=== PATIENT | female | born 1955 | race Two or more races ===

== ENCOUNTER 2020-05-12 03:57 | Inpatient (IN) | payer MEDICAID ==
[~2020-05-12] VITALS: Ht 152.4 cm; Wt 45.8 kg
[2020-05-12] MEDS ORDERED: SODIUM CHLORIDE 0.9% 1,000 ML IV ONE ×2 (04:30→05:15)
[2020-05-12 04:39] LABS: HEMATOCRIT. 32.9 % (36.0-48.0); HEMOGLOBIN. 10.4 g/dL (12.0-16.0); MEAN CORPUSCULAR HEMOGLOBIN 31.3 pg (28.0-32.0); MEAN CORPUSCULAR VOLUME 99.1 fL (81.0-99.0); MEAN PLATELET VOLUME 7.6 fl (7.4-10.4); PLATELET 402 x1000/uL (130-400); RED BLOOD CELL COUNT 3.32 mill/uL (4.2-5.4); RED CELL DISTRIBUTION WIDTH 15.9 % (11.6-14.6)
[2020-05-12 04:49] LABS: CHLORIDE 99 mEq/L (98-107)
[2020-05-12 04:54] LABS: ETHANOL BLOOD < 10 mg/dL
[2020-05-12 04:56] LABS: BETA HYDROXYBUTYRATE 0.7 mMol/L (0.0-0.3)
[2020-05-12 04:58] LABS: CREATINE KINASE 206 IU/L (26-192); INR 0.9; PROTHROMBIN TIME 9.9 sec (9.6-11.0)
[2020-05-12] MEDS ORDERED: VANCOMYCIN 1 G PREMIX 200 ML IV SCH (05:15)
[2020-05-12] MEDS ORDERED: PIPERACILLIN/TAZOBACTAM 3.375GM/50ML PREMIX IV SCH (05:15)
[2020-05-12] MEDS ORDERED: INSULIN REGULAR (HUMULIN R) 300UNITS/3ML VIAL IV ONE (06:30)
[2020-05-12] MEDS ORDERED: INSULIN REGULAR (DRIP) 100 UNITS in SODIUM CHLORIDE 0.9% 99 ML IV ONE (06:30)
[2020-05-12] MEDS ORDERED: INSULIN REGULAR (DRIP) 100 UNITS in SODIUM CHLORIDE 0.9% 99 ML IV SCH (06:45)
[2020-05-12 07:05] LABS: CLARITY URINE CLEAR (CLEAR); COLOR URINE YELLOW (YELLOW); KETONES URINE TRACE (NEGATIVE); LEUKOCYTE ESTERASE URINE TRACE (NEGATIVE); NITRITE URINE NEGATIVE (NEGATIVE); OCCULT BLOOD URINE 1+ (NEGATIVE); PH URINE 7.5 (4.5-8.0); PROTEIN URINE 3+ (NEGATIVE); SPECIFIC GRAVITY URINE 1.017 (1.005-1.030); UROBILINOGEN URINE 0.2 E.U./dL (0.2-1.0)
[2020-05-12 07:54] LABS: *AMPHETAMINES SCREEN URINE NEGATIVE (NEGATIVE); *BARBITURATES SCREEN URINE NEGATIVE (NEGATIVE); *BENZODIAZEPINES SCREEN URINE NEGATIVE (NEGATIVE); *COCAINE SCREEN URINE NEGATIVE (NEGATIVE)
[2020-05-12 07:55] LABS: CANNABINOID URINE SCREEN NEGATIVE (NEGATIVE); METHADONE URINE SCREEN NEGATIVE (NEGATIVE); OPIATES URINE SCREEN NEGATIVE (NEGATIVE); PHENCYCLIDINE URINE SCREEN NEGATIVE (NEGATIVE)
[2020-05-12] MEDS ORDERED: DIPHENHYDRAMINE 50MG/ML VIAL IV PRN (09:15)
[2020-05-12] MEDS ORDERED: IPRATROPIUM/ALBUTEROL 0.5-3(2.5)MG/3ML NEB HHN PRN (09:15)
[2020-05-12] MEDS ORDERED: CLONIDINE 0.1MG TABLET PO PRN (09:15)
[2020-05-12] MEDS ORDERED: ACETAMINOPHEN 325MG TABLET PO PRN (09:15)
[2020-05-12] MEDS ORDERED: SODIUM CHLORIDE 0.9% 1,000 ML IV SCH (09:15)
[2020-05-12] MEDS ORDERED: ONDANSETRON HCL 4MG/2ML INJ IV PRN (09:15)
[2020-05-12] MEDS: CEFTRIAXONE 1 G PREMIX 50 ML IV SCH (09:29)
[2020-05-12 09:37] LABS: PLATELET ESTIMATE NORMAL
[2020-05-12] MEDS ORDERED: DEXT 5%/0.9% NACL 1,000 ML IV SCH (13:00)
[2020-05-12 15:18] LABS: BG BASE EXCESS -14.5 mmol/L (-2.0-2.0); BG CARBOXYHEMOGLOBIN 0.4 % (0.5-1.5); BG DEOXYHEMOGLOBIN 2.5 % (0.0-5.0); BG HCO3 ACT 10.9 mmol/L (22.0-26.0); BG METHEMOGLOBIN 0.3 % (0.0-1.5); BG OXYGEN SATURATION 97.5 % (92.0-98.5); BG OXYHEMOGLOBIN 96.8 % (94.0-97.0); BG PH 7.274 (7.350-7.450); BG PO2 116.4 mmHg (75.0-100.0); BG SAMPLE SITE RIGHT BRACHIAL; BG TOTAL HEMOGLOBIN 8.7 g/dL (12.0-18.0); BG VENT MODE ROOM AIR
[2020-05-12] MEDS: DEXT 5%/0.45% NACL 1000ML 1,000 ML IV SCH (15:38)
[2020-05-12] MEDS ORDERED: HEPARIN 5000 UNITS/ML VIAL IV SCH ×2 (20:15→20:17)
[2020-05-12] MEDS ORDERED: HEPARIN SODIUM 1,000 UNIT/1ML VIAL IV SCH ×3 (20:15→21:46)
[2020-05-13] MEDS: DEXT 5%/0.45% NACL 1000ML 1,000 ML IV SCH ×2 (02:20→15:57)
[2020-05-13 04:14] LABS: EOSINOPHILS % 0.3 % (0.0-5.0); HEMATOCRIT. 24.4 % (36.0-48.0); HEMOGLOBIN. 8.6 g/dL (12.0-16.0); LYMPHOCYTES % 15.3 % (20.0-50.0); MEAN CORPUSCULAR HEMOGLOBIN 32.4 pg (28.0-32.0); MEAN CORPUSCULAR VOLUME 92.3 fL (81.0-99.0); MEAN PLATELET VOLUME 7.1 fl (7.4-10.4); MONOCYTES % 4.3 % (2.0-8.0); NEUTROPHILS % 79.1 % (40.0-76.0); PLATELET 338 x1000/uL (130-400); RED BLOOD CELL COUNT 2.65 mill/uL (4.2-5.4); RED CELL DISTRIBUTION WIDTH 16.2 % (11.6-14.6)
[2020-05-13 04:17] LABS: CHLORIDE 107 mEq/L (98-107)
[2020-05-13 04:24] LABS: PHOSPHORUS 2.7 mg/dL (2.5-4.9)
[2020-05-13 04:25] LABS: HDL CHOLESTEROL 50 mg/dL (40-59); LDL CHOLESTEROL 116 mg/dL (5-100)
[2020-05-13 04:26] LABS: BETA HYDROXYBUTYRATE 0.5 mMol/L (0.0-0.3)
[2020-05-13 09:22] LABS: CHLORIDE 106 mEq/L (98-107)
[2020-05-13] MEDS: CEFTRIAXONE 1 G PREMIX 50 ML IV SCH (09:39)
[2020-05-13] MEDS ORDERED: DEXTROSE 50% WATER 50ML SYRINGE IV PRN (10:15)
[2020-05-13] MEDS: INSULIN LISPRO (HIGH DOSE) 100 UNITS/ML SUBCUT SCH ×2 (12:00→16:00)
[2020-05-13] MEDS: BLOOD SUGAR DIAGNOSTIC STRIP TEST SCH ×2 (12:10→16:11)
[2020-05-13] MEDS: INSULIN GLARGINE UD 100 UNITS/ML SYR SUBCUT SCH ×2 (12:12→22:00)
[2020-05-13 17:23] LABS: T4 FREE 1.11 ng/dL (0.76-1.46)
[2020-05-13] MEDS ORDERED: INSULIN REGULAR (DRIP) 100 UNITS in SODIUM CHLORIDE 0.9% 99 ML IV SCH (22:00)
[2020-05-14] MEDS: DEXT 5%/0.45% NACL 1000ML 1,000 ML IV SCH (02:32)
[2020-05-14 04:43] LABS: BASOPHILS % 0.7 % (0.0-2.0); EOSINOPHILS % 1.6 % (0.0-5.0); HEMATOCRIT. 25.4 % (36.0-48.0); HEMOGLOBIN. 8.6 g/dL (12.0-16.0); LYMPHOCYTES % 20.2 % (20.0-50.0); MEAN CORPUSCULAR VOLUME 93.7 fL (81.0-99.0); MEAN PLATELET VOLUME 7.3 fl (7.4-10.4); MONOCYTES % 9.9 % (2.0-8.0); NEUTROPHILS % 67.6 % (40.0-76.0); PLATELET 353 x1000/uL (130-400); RED BLOOD CELL COUNT 2.71 mill/uL (4.2-5.4); RED CELL DISTRIBUTION WIDTH 16.2 % (11.6-14.6)
[2020-05-14 04:54] LABS: PHOSPHORUS 3.8 mg/dL (2.5-4.9)
[2020-05-14] MEDS ORDERED: CEFTRIAXONE 1,000 MG in DEXTROSE 5% WATER 50 ML IV SCH (09:00)
[2020-05-14] MEDS ORDERED: CEFTRIAXONE SODIUM 1 G/VIAL ONE (09:09)
[2020-05-14] MEDS: INSULIN GLARGINE UD 100 UNITS/ML SYR SUBCUT SCH ×2 (10:00→21:16)
[2020-05-14 12:00] VITALS: BP 158/65
[2020-05-14] MEDS: BLOOD SUGAR DIAGNOSTIC STRIP TEST SCH ×3 (12:52→20:00)
[2020-05-14 13:14] VITALS: BP 158/65
[2020-05-14] MEDS ORDERED: LISINOPRIL 20MG TABLET PO SCH (13:15)
[2020-05-14] MEDS ORDERED: INSU100I24 SQ (13:30)
[2020-05-14] MEDS ORDERED: LORA10TA7 MT (13:30)
[2020-05-14] MEDS ORDERED: NIFE-33 MT ×2 (13:30)
[2020-05-14] MEDS ORDERED: LEVO100T9 MT (13:30)
[2020-05-14] MEDS: INSULIN LISPRO (HIGH DOSE) 100 UNITS/ML SUBCUT SCH ×3 (14:40→20:00)
[2020-05-14 16:00] VITALS: BP 149/45
[2020-05-14 17:48] VITALS: BP 149/45
[2020-05-14 20:00] VITALS: BP 126/60
[2020-05-14] MEDS ORDERED: EPOETIN ALFA-EPBX 4,000 UNIT/ML VIAL SUBCUT SCH (21:00)
[2020-05-19] MEDS ORDERED: DEXT 5%/0.9% NACL 1,000 ML IV SCH (23:55)
== END 2020-05-14 22:10 | disposition home or self-care (01) | DRG 420 ==
LOC: ER 03:57 → MICUSO 08:49 → EDBEDREQSVC 08:58 → CVICU 05-14 07:07 → MICUSO 05-14 08:53 → 6EST 05-14 09:04
PROVIDERS: ADMIT Internal Medicine; ATTEND Internal Medicine
PROC: 5A1D70Z Performance of Urinary Filtration, Intermittent, Less than 6 Hours Per Day (ICD-10-PCS; principal; 2020-05-12)
PROC: 5A1D70Z Performance of Urinary Filtration, Intermittent, Less than 6 Hours Per Day (ICD-10-PCS; 2020-05-13)
DX: E11.00 Type 2 diabetes mellitus with hyperosmolarity without nonketotic hyperglycemic-hyperosmolar coma (NKHHC) (principal); E11.10 Type 2 diabetes mellitus with ketoacidosis without coma; D63.1 Anemia in chronic kidney disease; E03.9 Hypothyroidism, unspecified; E11.22 Type 2 diabetes mellitus with diabetic chronic kidney disease; E87.5 Hyperkalemia; I12.0 Hypertensive chronic kidney disease with stage 5 chronic kidney disease or end stage renal disease; N17.9 Acute kidney failure, unspecified; N18.6 End stage renal disease; Z99.2 Dependence on renal dialysis; Z79.899 Other long term (current) drug therapy; Z79.4 Long term (current) use of insulin; G93.41 Metabolic encephalopathy
CPT/HCPCS: 36415; 36600; 71045; 80048; 80053; 80061; 80305; 80307; 80320; 80329; 81003; 82010; 82140; 82375; 82550; 82805; 82962; 83605; 83735; 83880; 84100; 84439; 84443; 84481; 84484; 85025; 93005; 93970; 96365; 99291; J0696; J0885; J1644; J1815; J2543; J3370; J7030; J7050; J7060; G0480

== ENCOUNTER 2024-03-11 00:51 | Inpatient (IN) | payer MEDICARE, MEDICAID ==
[2024-03-11] VITALS (7 sets, daily range): BP systolic 131–168; BP diastolic 50–75; PULSE 70–79; RESP 15–20; TEMP 36.00288–37.00296; O2SAT 94–98
[~2024-03-11] VITALS: Ht 144.8 cm; Wt 34.0 kg
[~2024-03-11 00:51] MED LIST: INSU100I24 SQ; LEVO100T9 MT; LORA10TA7 MT; NIFE-33 MT
[2024-03-11] MEDS ORDERED: PIPERACILLIN/TAZO 3.375G/50ML 50 ML IV ONE (01:30)
[2024-03-11 01:57] LABS: BASOPHILS % 0.9 % (0.0-2.0); DIFFERENTIAL COMMENT 0; EOSINOPHILS % 0.7 % (0.0-5.0); HEMATOCRIT. 27.3 % (36.0-48.0); HEMOGLOBIN. 9.2 g/dL (12.0-16.0); LYMPHOCYTES % 8.9 % (20.0-50.0); MEAN CORPUSCULAR HEMOGLOBIN 33.8 pg (28.0-32.0); MEAN CORPUSCULAR HGB CONC 33.6 g/dL (31.0-37.0); MEAN CORPUSCULAR VOLUME 100.7 fL (81.0-99.0); MEAN PLATELET VOLUME 7.3 fl (7.4-10.4); MONOCYTES % 3.3 % (2.0-8.0); NEUTROPHILS % 86.2 % (40.0-76.0); PLATELET 726 x1000/uL (130-400); RED BLOOD CELL COUNT 2.72 mill/uL (4.2-5.4); RED CELL DISTRIBUTION WIDTH 16.9 % (11.6-14.6); WHITE BLOOD COUNT 20.3 x1000/uL (4.5-11.0)
[2024-03-11 02:06] LABS: CHLORIDE 95 mEq/L (98-107); INR 0.9; POTASSIUM 4.1 mEq/L (3.5-5.1); PROTHROMBIN TIME 10.3 sec (9.6-11.0); SODIUM 131 mEq/L (136-145)
[2024-03-11 02:07] LABS: CARBON DIOXIDE 21 mEq/L (21-32)
[2024-03-11 02:08] LABS: CALCIUM 8.7 mg/dL (8.7-10.4)
[2024-03-11 02:13] LABS: UREA NITROGEN BLOOD 69 mg/dL (9-23)
[2024-03-11 02:14] LABS: ALANINE AMINOTRANSFERASE 15 IU/L (10-49); ALBUMIN 4.2 g/dL (3.2-4.8); ASPARTATE AMINOTRANSFERASE 15 IU/L (<34)
[2024-03-11 02:15] LABS: BILIRUBIN TOTAL < 0.2 mg/dL (0.1-1.0); PROTEIN TOTAL 7.3 g/dL (6.0-8.3)
[2024-03-11 02:42] LABS: BILIRUBIN DIRECT < 0.1 mg/dL (<=3.0)
[2024-03-11 02:43] LABS: ETHANOL BLOOD < 10 mg/dL (<10)
[2024-03-11 02:44] LABS: CREATININE 7.9 mg/dL (0.6-1.0); GLUCOSE 403 mg/dL (70-105); TROPONIN I HIGH SENSITIVITY 43 ng/L (3.0-34)
[2024-03-11] MEDS: PIPERACILLIN/TAZO 3.375G/100ML 100 ML IV NR (02:51)
[2024-03-11] MEDS ORDERED: SODIUM CHLORIDE 0.9% 250 ML IV NR (03:00)
[2024-03-11 04:33] LABS: *AMPHETAMINES SCREEN URINE NEGATIVE (NEGATIVE); *BARBITURATES SCREEN URINE NEGATIVE (NEGATIVE); *BENZODIAZEPINES SCREEN URINE NEGATIVE (NEGATIVE); *COCAINE SCREEN URINE NEGATIVE (NEGATIVE)
[2024-03-11 04:34] LABS: CANNABINOID URINE SCREEN NEGATIVE (NEGATIVE); ECSTASY MDMA SCREEN URINE NEGATIVE (NEGATIVE); METHADONE URINE SCREEN NEGATIVE (NEGATIVE); OPIATES URINE SCREEN NEGATIVE (NEGATIVE); PHENCYCLIDINE URINE SCREEN NEGATIVE (NEGATIVE)
[2024-03-11 04:51] LABS: CLARITY URINE TURBID (CLEAR); COLOR URINE YELLOW (YELLOW); GLUCOSE URINE 3+ (NEGATIVE); KETONES URINE NEGATIVE (NEGATIVE); LEUKOCYTE ESTERASE URINE 2+ (NEGATIVE); NITRITE URINE NEGATIVE (NEGATIVE); OCCULT BLOOD URINE 1+ (NEGATIVE); PROTEIN URINE 3+ (NEGATIVE); SPECIFIC GRAVITY URINE 1.017 (1.005-1.030); UROBILINOGEN URINE 0.2 E.U./dL (0.2-1.0)
[2024-03-11] MEDS: VANCOMYCIN 1G PREMIX 200 ML IV SCH (06:55)
[2024-03-11] MEDS: INSULIN REGULAR (HUMULIN R) 1000UNITS/10ML VIAL SUBCUT NR (06:56)
[2024-03-11] MEDS: HYDRALAZINE 20MG/ML VIAL IV NR (06:59)
[2024-03-11 07:19] LABS: SQUAMOUS EPITHELIAL CELL URINE 1+ /lpf (RARE/1+)
[2024-03-11 07:20] LABS: WBC URINE 50-100 /hpf (0-2)
[2024-03-11 07:21] LABS: BACTERIA URINE 2+; RBC URINE 0-2 /hpf (0-2)
[2024-03-11] MEDS ORDERED: ONDANSETRON HCL 4MG TABLET PO PRN (09:00)
[2024-03-11] MEDS: BLOOD SUGAR DIAGNOSTIC STRIP TEST SCH (13:42)
[2024-03-11] MEDS ORDERED: IPRATROPIUM/ALBUTEROL 0.5-3(2.5)MG/3ML NEB HHN PRN (13:45)
[2024-03-11] MEDS ORDERED: ONDANSETRON HCL 4MG/2ML INJ IV PRN (13:45)
[2024-03-11] MEDS ORDERED: DOCUSATE SODIUM 100MG CAPSULE PO PRN (13:45)
[2024-03-11] MEDS: LEVOTHYROXINE SODIUM 100MCG TABLET PO SCH (14:02)
[2024-03-11] MEDS: LORATADINE 10MG TABLET PO SCH (14:02)
[2024-03-11] MEDS: FLUCONAZOLE 100MG TABLET PO SCH (14:02)
[2024-03-11] MEDS: INSULIN LISPRO 100 UNITS/ML SUBCUT SCH (14:03)
[2024-03-11] MEDS: NIFEDIPINE XL 30MG TAB PO SCH (16:43)
[2024-03-11] MEDS: CLONIDINE 0.1MG TABLET PO PRN (16:43)
[2024-03-11 17:30] LABS: TROPONIN I HIGH SENSITIVITY 83 ng/L (3.0-34)
[2024-03-11] MEDS: ACETAMINOPHEN 325MG TABLET PO PRN (18:03)
[2024-03-12] VITALS (8 sets, daily range): BP systolic 133–153; BP diastolic 38–77; PULSE 74–81; RESP 15–20; TEMP 36.22512–36.61404; O2SAT 98–100
[2024-03-12] MEDS: INSULIN GLARGINE 100 UNITS/ML SUBCUT SCH ×2 (02:04→22:00)
[2024-03-12] MEDS: EPOETIN ALFA-EPBX 4,000 UNIT/ML VIAL SUBCUT SCH (02:06)
[2024-03-12] MEDS: DEXTROSE 50% WATER 50ML SYRINGE IV PRN (06:35)
[2024-03-12 07:19] LABS: CALCIUM 9.1 mg/dL (8.7-10.4); CARBON DIOXIDE 20 mEq/L (21-32); CHLORIDE 100 mEq/L (98-107); SODIUM 138 mEq/L (136-145)
[2024-03-12 07:23] LABS: BILIRUBIN TOTAL < 0.2 mg/dL (0.1-1.0)
[2024-03-12 07:24] LABS: ALANINE AMINOTRANSFERASE 10 IU/L (10-49); GLUCOSE 170 mg/dL (70-105); IRON 95 ug/dL (50-170)
[2024-03-12 07:25] LABS: TOTAL IRON BINDING CAPACITY 627 ug/dl (250-425); UREA NITROGEN BLOOD 54 mg/dL (9-23)
[2024-03-12 07:26] LABS: ALBUMIN 3.7 g/dL (3.2-4.8); ASPARTATE AMINOTRANSFERASE 8 IU/L (<34); PHOSPHORUS 4.6 mg/dL (2.5-4.9)
[2024-03-12 07:27] LABS: PROTEIN TOTAL 6.5 g/dL (6.0-8.3)
[2024-03-12 07:36] LABS: VITAMIN B12 SERUM 813 pg/mL (211-911)
[2024-03-12 07:37] LABS: FERRITIN 863 ng/mL (10-291); FOLIC ACID (FOLATE) SERUM 6.28 ng/mL (>5.38)
[2024-03-12 08:01] LABS: BODY FLUID RBC 3 /cu mm (0-2000); BODY FLUID WBC 5 /cu mm (0-200)
[2024-03-12 08:02] LABS: BODY FLUID MONOCYTES 40 %
[2024-03-12 08:11] LABS: DIFFERENTIAL COMMENT 0; EOSINOPHILS % 1.9 % (0.0-5.0); HEMATOCRIT. 23.9 % (36.0-48.0); LYMPHOCYTES % 14.9 % (20.0-50.0); MEAN CORPUSCULAR HEMOGLOBIN 33.4 pg (28.0-32.0); MEAN CORPUSCULAR HGB CONC 33.2 g/dL (31.0-37.0); MEAN CORPUSCULAR VOLUME 100.5 fL (81.0-99.0); MEAN PLATELET VOLUME 7.3 fl (7.4-10.4); MONOCYTES % 8.4 % (2.0-8.0); NEUTROPHILS % 73.8 % (40.0-76.0); PLATELET 597 x1000/uL (130-400); RED BLOOD CELL COUNT 2.38 mill/uL (4.2-5.4); RED CELL DISTRIBUTION WIDTH 16.4 % (11.6-14.6); WHITE BLOOD COUNT 9.3 x1000/uL (4.5-11.0)
[2024-03-12 08:25] LABS: BILIRUBIN DIRECT < 0.1 mg/dL (<=3.0); CREATININE 6.6 mg/dL (0.6-1.0)
[2024-03-12 08:33] LABS: POTASSIUM 2.7 mEq/L (3.5-5.1)
[2024-03-12] MEDS: POTASSIUM CHLORIDE 20MEQ TABLET SR PO NR ×2 (16:26→18:06)
[2024-03-13] VITALS (9 sets, daily range): BP systolic 125–155; BP diastolic 46–72; PULSE 73–98; RESP 15–20; TEMP 35.78064–36.72516; O2SAT 98–100
[2024-03-13] MEDS: LEVOTHYROXINE SODIUM 100MCG TABLET PO SCH (08:14)
[2024-03-13 08:40] LABS: CHLORIDE 101 mEq/L (98-107); POTASSIUM 3.8 mEq/L (3.5-5.1); SODIUM 138 mEq/L (136-145)
[2024-03-13 08:41] LABS: CALCIUM 8.9 mg/dL (8.7-10.4); CARBON DIOXIDE 25 mEq/L (21-32)
[2024-03-13 08:46] LABS: GLUCOSE 93 mg/dL (70-105)
[2024-03-13 08:47] LABS: UREA NITROGEN BLOOD 41 mg/dL (9-23)
[2024-03-13 08:49] LABS: PHOSPHORUS 3.7 mg/dL (2.5-4.9)
[2024-03-13 08:59] LABS: CREATININE 6.2 mg/dL (0.6-1.0)
[2024-03-13 09:07] LABS: BASOPHILS % 1.1 % (0.0-2.0); DIFFERENTIAL COMMENT 0; EOSINOPHILS % 2.6 % (0.0-5.0); HEMATOCRIT. 22.4 % (36.0-48.0); HEMOGLOBIN. 7.5 g/dL (12.0-16.0); LYMPHOCYTES % 22.7 % (20.0-50.0); MEAN CORPUSCULAR HEMOGLOBIN 33.7 pg (28.0-32.0); MEAN CORPUSCULAR HGB CONC 33.6 g/dL (31.0-37.0); MEAN CORPUSCULAR VOLUME 100.2 fL (81.0-99.0); MEAN PLATELET VOLUME 7.4 fl (7.4-10.4); MONOCYTES % 9.9 % (2.0-8.0); NEUTROPHILS % 63.7 % (40.0-76.0); PLATELET 630 x1000/uL (130-400); RED BLOOD CELL COUNT 2.24 mill/uL (4.2-5.4); RED CELL DISTRIBUTION WIDTH 16.9 % (11.6-14.6); WHITE BLOOD COUNT 10.2 x1000/uL (4.5-11.0)
[2024-03-13] MEDS: MAGNESIUM OXIDE 400MG TABLET PO SCH (13:25)
[2024-03-13] MEDS: PANTOPRAZOLE SODIUM 40 MG/VIAL IV SCH (13:25)
[2024-03-13] MEDS: MAGNESIUM 2 G PREMIX 50 ML IV NR (15:49)
[2024-03-14] VITALS (8 sets, daily range): BP systolic 125–166; BP diastolic 43–91; PULSE 70–86; RESP 18–20; TEMP 36.28068–36.83628; O2SAT 93–99
[2024-03-14 07:15] LABS: BASOPHILS % 1.2 % (0.0-2.0); DIFFERENTIAL COMMENT 0; EOSINOPHILS % 2.3 % (0.0-5.0); HEMATOCRIT. 21.8 % (36.0-48.0); HEMOGLOBIN. 7.4 g/dL (12.0-16.0); MEAN CORPUSCULAR HEMOGLOBIN 34.3 pg (28.0-32.0); MEAN CORPUSCULAR VOLUME 100.7 fL (81.0-99.0); MEAN PLATELET VOLUME 7.2 fl (7.4-10.4); NEUTROPHILS % 63.5 % (40.0-76.0); PLATELET 644 x1000/uL (130-400); RED BLOOD CELL COUNT 2.16 mill/uL (4.2-5.4); RED CELL DISTRIBUTION WIDTH 16.7 % (11.6-14.6); WHITE BLOOD COUNT 9.9 x1000/uL (4.5-11.0)
[2024-03-14 07:33] LABS: CHLORIDE 98 mEq/L (98-107); POTASSIUM 3.6 mEq/L (3.5-5.1); SODIUM 136 mEq/L (136-145)
[2024-03-14 07:34] LABS: CALCIUM 8.9 mg/dL (8.7-10.4); CARBON DIOXIDE 26 mEq/L (21-32)
[2024-03-14 07:39] LABS: GLUCOSE 237 mg/dL (70-105); UREA NITROGEN BLOOD 32 mg/dL (9-23)
[2024-03-14 07:41] LABS: PHOSPHORUS 3.8 mg/dL (2.5-4.9)
[2024-03-14 08:10] LABS: CREATININE 5.6 mg/dL (0.6-1.0)
[2024-03-14] MEDS: MEROPENEM 500MG/50ML IV SCH (17:29)
[2024-03-15] VITALS (8 sets, daily range): BP systolic 125–192; BP diastolic 41–71; PULSE 62–77; RESP 18–20; TEMP 36.22512–36.6696; O2SAT 96–100
[2024-03-15] MEDS ORDERED: IPRATROPIUM/ALBUTEROL 0.5-3(2.5)MG/3ML NEB HHN SCH (04:00)
[2024-03-15] MEDS: INSULIN LISPRO 100 UNITS/ML SUBCUT SCH (05:57)
[2024-03-15 07:38] LABS: CARBON DIOXIDE 25 mEq/L (21-32); CHLORIDE 100 mEq/L (98-107); POTASSIUM 3.5 mEq/L (3.5-5.1); SODIUM 137 mEq/L (136-145)
[2024-03-15 07:39] LABS: CALCIUM 9.2 mg/dL (8.7-10.4)
[2024-03-15 07:44] LABS: GLUCOSE 100 mg/dL (70-105)
[2024-03-15 07:45] LABS: UREA NITROGEN BLOOD 27 mg/dL (9-23)
[2024-03-15 07:46] LABS: PHOSPHORUS 4.5 mg/dL (2.5-4.9)
[2024-03-15 08:25] LABS: BASOPHILS % 1.2 % (0.0-2.0); EOSINOPHILS % 3.7 % (0.0-5.0); HEMATOCRIT. 24.5 % (36.0-48.0); HEMOGLOBIN. 8.1 g/dL (12.0-16.0); LYMPHOCYTES % 21.6 % (20.0-50.0); MEAN CORPUSCULAR HEMOGLOBIN 32.8 pg (28.0-32.0); MEAN CORPUSCULAR VOLUME 99.4 fL (81.0-99.0); MEAN PLATELET VOLUME 7.2 fl (7.4-10.4); MONOCYTES % 9.5 % (2.0-8.0); PLATELET 679 x1000/uL (130-400); RED BLOOD CELL COUNT 2.46 mill/uL (4.2-5.4); RED CELL DISTRIBUTION WIDTH 16.3 % (11.6-14.6); WHITE BLOOD COUNT 10.2 x1000/uL (4.5-11.0)
[2024-03-15 08:31] LABS: DIFFERENTIAL COMMENT 1
[2024-03-15 09:11] LABS: CREATININE 5.8 mg/dL (0.6-1.0)
[2024-03-15] MEDS: HYDROCODONE/ACETAMINOPHEN 5/325MG TABLET PO PRN (10:05)
[2024-03-15] MEDS ORDERED: NALOXONE HCL 0.4MG/ML VIAL IV PRN (10:30)
[2024-03-15] MEDS: HYDRALAZINE 20MG/ML VIAL IV PRN (10:54)
[2024-03-15] MEDS: NIFEDIPINE XL 30MG TAB PO SCH (10:55)
[2024-03-15] MEDS ORDERED: NIFE-32 PO (16:02)
[2024-03-15] MEDS ORDERED: LANTUSUD SUBCUT (16:02)
[2024-03-15] MEDS: INSULIN GLARGINE 100 UNITS/ML SUBCUT SCH (21:28)
[2024-03-15] MEDS: NIFEDIPINE XL 60MG TAB PO SCH (21:30)
[2024-03-16] VITALS: BP 128/44; PULSE 69; RESP 19; TEMP 36.16956; O2SAT 96
[2024-03-16 04:00] VITALS: BP 131/41; PULSE 72; RESP 16; TEMP 35.8362; O2SAT 96
[2024-03-16 08:00] VITALS: BP_SYST 106; BP_SYST 155; BP_DIAS 74; BP_DIAS 84; BP_DIAS 87; PULSE 64; PULSE 75; PULSE 77; RESP 19; RESP 20; TEMP 36.3918; TEMP 36.55848; TEMP 36.72516; O2SAT 96; O2SAT 99
[2024-03-16 08:25] LABS: BASOPHILS % 0.8 % (0.0-2.0); EOSINOPHILS % 1.5 % (0.0-5.0); HEMATOCRIT. 25.1 % (36.0-48.0); HEMOGLOBIN. 8.1 g/dL (12.0-16.0); LYMPHOCYTES % 19.3 % (20.0-50.0); MEAN CORPUSCULAR HEMOGLOBIN 32.9 pg (28.0-32.0); MEAN CORPUSCULAR HGB CONC 32.4 g/dL (31.0-37.0); MEAN CORPUSCULAR VOLUME 101.7 fL (81.0-99.0); MEAN PLATELET VOLUME 6.6 fl (7.4-10.4); MONOCYTES % 6.2 % (2.0-8.0); NEUTROPHILS % 72.2 % (40.0-76.0); PLATELET 603 x1000/uL (130-400); RED BLOOD CELL COUNT 2.47 mill/uL (4.2-5.4); RED CELL DISTRIBUTION WIDTH 16.6 % (11.6-14.6)
[2024-03-16 08:31] LABS: CARBON DIOXIDE 26 mEq/L (21-32); CHLORIDE 93 mEq/L (98-107); POTASSIUM 3.7 mEq/L (3.5-5.1); SODIUM 130 mEq/L (136-145)
[2024-03-16 08:36] LABS: GLUCOSE 118 mg/dL (70-105)
[2024-03-16 08:37] LABS: UREA NITROGEN BLOOD 27 mg/dL (9-23)
[2024-03-16 08:39] LABS: PHOSPHORUS 5.3 mg/dL (2.5-4.9)
[2024-03-16 08:42] LABS: DIFFERENTIAL COMMENT 1
[2024-03-16 10:59] VITALS: BP 106/74; PULSE 64; TEMP 98.1; O2SAT 96
== END 2024-03-16 12:15 | disposition home health service (06) | DRG 871 ==
LOC: ER 00:59 → 7WST 03:01
PROVIDERS: ADMIT Internal Medicine; ATTEND Internal Medicine
PROC: 3E1M39Z Irrigation of Peritoneal Cavity using Dialysate, Percutaneous Approach (ICD-10-PCS; principal; 2024-03-11)
PROC: 3E1M39Z Irrigation of Peritoneal Cavity using Dialysate, Percutaneous Approach (ICD-10-PCS; 2024-03-12)
PROC: 3E1M39Z Irrigation of Peritoneal Cavity using Dialysate, Percutaneous Approach (ICD-10-PCS; 2024-03-13)
PROC: 3E1M39Z Irrigation of Peritoneal Cavity using Dialysate, Percutaneous Approach (ICD-10-PCS; 2024-03-14)
PROC: 3E1M39Z Irrigation of Peritoneal Cavity using Dialysate, Percutaneous Approach (ICD-10-PCS; 2024-03-15)
DX: A41.51 Sepsis due to Escherichia coli [E. coli] (principal); I21.4 Non-ST elevation (NSTEMI) myocardial infarction; J96.00 Acute respiratory failure, unspecified whether with hypoxia or hypercapnia; J18.9 Pneumonia, unspecified organism; N18.6 End stage renal disease; I12.0 Hypertensive chronic kidney disease with stage 5 chronic kidney disease or end stage renal disease; I16.1 Hypertensive emergency; N25.81 Secondary hyperparathyroidism of renal origin; N39.0 Urinary tract infection, site not specified; E87.1 Hypo-osmolality and hyponatremia; T81.31XA Disruption of external operation (surgical) wound, not elsewhere classified, initial encounter; D53.9 Nutritional anemia, unspecified; E03.9 Hypothyroidism, unspecified; E11.65 Type 2 diabetes mellitus with hyperglycemia; E11.22 Type 2 diabetes mellitus with diabetic chronic kidney disease; E78.5 Hyperlipidemia, unspecified; E87.70 Fluid overload, unspecified; I51.7 Cardiomegaly; Z87.01 Personal history of pneumonia (recurrent); Z51.5 Encounter for palliative care; Z79.4 Long term (current) use of insulin; Z82.49 Family history of ischemic heart disease and other diseases of the circulatory system; Z89.431 Acquired absence of right foot; Z99.2 Dependence on renal dialysis; Y83.8 Other surgical procedures as the cause of abnormal reaction of the patient, or of later complication, without mention of misadventure at the time of the procedure; Y92.89 Other specified places as the place of occurrence of the external cause
CPT/HCPCS: 36415; 71045; 71250; 73630; 76604; 80048; 80076; 80305; 80320; 81003; 82607; 82728; 82746; 82962; 83036; 83540; 83550; 83605; 83735; 83880; 84100; 84145; 84484; 85025; 85379; 87077; 87186; 90945; 93005; 93306; 99291; A4606; C1893; J0360; J0885; J1815; J2185; J2470; J2543; J3370; J3475; G0480